=== PATIENT | female | born 1965 | race Two or more races ===

== ENCOUNTER 2023-08-01 10:04 | Emergency (ER) | payer MEDICAID ==
[~2023-08-01] VITALS: Ht 157.5 cm; Wt 56.7 kg
[2023-08-01] MEDS ORDERED: IV NS 0.9% 250 ML IV ONE (12:36)
[2023-08-01] MEDS ORDERED: IOHEXOL-350 100 ML VIAL IV ONE (12:36)
[2023-08-01] MEDS ORDERED: IBUP-1955 PO (12:41)
[2023-08-01] MEDS ORDERED: CYCL10TA9 PO (12:41)
[2023-08-01] MEDS ORDERED: IBUPROFEN 600 MG TABLET ONE (12:42)
[2023-08-01] MEDS ORDERED: IBUPROFEN 600 MG TABLET PO ONE (13:00)
[2023-08-01 13:43] VITALS: BP 124/57; TEMP 98.7; O2SAT 98
== END 2023-08-01 13:43 | disposition home or self-care (01) ==
LOC: ER 10:09
DX: S39.012A Strain of muscle, fascia and tendon of lower back, initial encounter (principal); S60.221A Contusion of right hand, initial encounter; Z60.2 Problems related to living alone; V89.2XXA Person injured in unspecified motor-vehicle accident, traffic, initial encounter; Y93.89 Activity, other specified; Y92.89 Other specified places as the place of occurrence of the external cause; Y99.8 Other external cause status
CPT/HCPCS: 70450-TC; 71045-TC; 72110-TC; 73090-TC; 73130-TC; 73630-TC; J7050; Q9967